=== PATIENT | female | born 1980 | race Hispanic/Latino ===

== ENCOUNTER → 2018-01-10 | Day surgery (SDC) | payer OTHER ==
[~2018-01-10] MED LIST: CEFTRIAXONE SOD 1 GM VIAL ONE; DEXAMETHASONE SOD PHOS INJ 4 MG/ML VIAL ONE; FENTANYL CITRATE/PF 100MCG/2 ML INJ ONE; IOPAMIDOL 300MG/ML 50ML INFUS..BTL IV ONE; KETOROLAC TROMETHAMINE 30 MG/ML VIAL ONE; LIDOCAINE HCL 2% LOCAL INJ 5 ML SDV VIAL INJ ONE; MIDAZOLAM HCL 2 MG/2 ML VIAL ONE; ONDANSETRON HCL INJ 2 MG/ML VIAL ONE; PROPOFOL IV EMULSION 10 MG/ML 20 ML VIAL ONE; SEVOFLURANE INHAL SOLN 250 ML PEN BTL ONE
--- NOTE | 2018-01-10 07:42 | Operative Report ---
DATE OF PROCEDURE: January 10, 2018 PREOPERATIVE DIAGNOSES 1. Multiple urinary tract infections. 2. Clinical signs and symptoms of interstitial cystitis. POSTOPERATIVE DIAGNOSES 1. Multiple urinary tract infections. 2. Clinical signs and symptoms of interstitial cystitis. PROCEDURES 1. Cystourethroscopy with hydrodistention (entirely separate procedure for the clinical signs and symptoms of interstitial cystitis). 2. Cystourethroscopy with left ureteral catheterization and left retrograde pyelogram (separate procedure for multiple urinary tract infections). 3. Cystourethroscopy with right ureteral catheterization and right retrograde pyelogram (separate procedure performed for multiple chronic urinary tract infections). 4. Supervision of fluoroscopy. 5. Interpretation of retrograde pyelography. ANESTHESIA: General. ESTIMATED BLOOD LOSS: Minimal. COMPLICATIONS: None. INDICATIONS FOR PROCEDURE: Ms. Mosley is a 37-year-old female with multiple chronic urinary tract infections. She and I had a long discussion about alternatives, risks and benefits including doing nothing, cystoscopy, IVP, retrograde pyelograms, and renal ultrasound, hydrodistention. She voiced understanding of the options, alternatives, risks and benefits and elected to proceed with hydrodistention and retrograde pyelograms to avoid nephrotoxic risks. She voiced understanding of the alternatives, the risks and the benefits, and elected to proceed. PROCEDURE IN DETAIL: After informed consent was obtained, the patient was taken to the operative suite and placed supine on the operating table and underwent general anesthesia by the anesthesia service. She was then placed in the dorsal lithotomy position and sterilely prepped and draped in the standard fashion for cystoscopy. A 22.5-Georgian cystoscope was inserted per urethra. Panendoscopy of the bladder revealed no tumors and no stones. Both ureteral orifices were within normal anatomic location and position and seen to efflux clear urine. Hydrodistention was performed in the standard fashion revealing a capacity of 800 mL. No glomerulations. There were no Varun's ulcers. Bilateral retrograde pyelograms were performed, which were normal. The bladder was then drained. The patient was awakened from anesthesia and transported to the recovery room in excellent condition. SUPERVISION OF FLUOROSCOPY, INTERPRETATION OF RETROGRADE URETERAL PYELOGRAPHY: I was present throughout the entire procedure and I supervised the use of fluoroscopy as no radiologist was present at any time during this procedure. Attention was turned toward the left and right ureteral orifices, catheterized with an 8-Georgian cone-tipped catheter. In a retrograde fashion, contrast was injected. It revealed delicate ureters, delicate pelviceal systems. No evidence of filling defects. No evidence of hydronephrosis. IMPRESSION: Normal retrograde pyelograms. Job#: [id number]
== END | disposition home or self-care (01) ==
LOC: OR 05:06
PROVIDERS: ATTEND Urology
DX: N39.0 Urinary tract infection, site not specified (principal); N39.3 Stress incontinence (female) (male); R35.1 Nocturia; Z87.891 Personal history of nicotine dependence
CPT/HCPCS: 52005; 74420; 81025; C1758; J0696; J1100; J1885; J2001; J2250; J2405; Q9967

== ENCOUNTER → 2018-01-18 | Outpatient (CLI) | payer OTHER ==
--- NOTE | 2018-01-18 15:06 | Diagnostic Imaging Report ---
PROCEDURE:US RETROPERITONEAL ( KIDNEY ). COMPARISON:None. INDICATIONS:asymptomatic microscopic hematuria TECHNIQUE: Stehpenson-scale and color sonographic images of the bilateral kidneys and bladder where obtained in transverse and longitudinal planes. FINDINGS: RIGHT KIDNEY: 12.4 cm, cortex 2.0 cm Cysts: None Solid masses: None Stones: None Hydronephrosis: None. Echogenicity: Normal LEFT KIDNEY: 10.7 cm, cortex 1.9 cm Cysts: None Solid masses: None Stones: None Hydronephrosis: None. Mild pelviectasis. Echogenicity: Normal Bladder: No focal lesions. Ureteral jets are identified. CONCLUSION: 1. Normal bilateral renal size, and echogenicity. No hydronephrosis, stones, or solid lesions. 2. Mild left pelviectasis. Lance Theodore M.D. Dictated by: Lance Theodore M.D. on 01/18/2018 at 15:11 Electronically approved by: Lance Theodore M.D. on 01/18/2018 at 15:11
== END ==
LOC: US 12:25
PROVIDERS: ATTEND Urology
DX: R31.21 Asymptomatic microscopic hematuria (principal)
CPT/HCPCS: 76770